=== PATIENT | female | born 1940 | race Caucasian/White ===

== ENCOUNTER 2018-09-30 10:15 | Outpatient (CLI) | payer MEDICARE ==
--- NOTE | 2018-09-30 10:34 | RAD ---
EXAM: Chest PA and lateral: HISTORY: Cough COMPARISON: 05/20/2015 FINDINGS: Enlarged cardiac silhouette. Normal pulmonary vessels. Patchy interstitial opacities in lung bases, l ikely representing chronic change. No masses or consolidation. No pleural effusion or pneumothorax. IMPRESSION: No acute cardiopulmonary process.
== END 2018-09-30 10:16 | disposition home or self-care (01) ==
LOC: MADRAD 10:15
PROVIDERS: ATTEND Obstetrics & Gynecology
DX: R05 Cough (principal)
CPT/HCPCS: 71046

== ENCOUNTER 2019-07-27 16:57 | Emergency (ER) | payer MEDICARE ==
[2019-07-27 17:37] LABS: #Basophils 0.1 thou/uL (0.0-0.2); #Eosinphils 0.1 thou/uL (0.0-0.7); #Lymphocytes 2.1 thou/uL (1.20-3.40); #Monocytes 0.5 thou/uL (0.11-0.59); #Neutrophils 4.6 thou/uL (1.40-6.50); %Basophils 1.3 % (0.0-1.0); %Eosinophils 1.3 % (0.0-10.0); %Monocytes 7.3 % (0.0-10.0); %Neutrophils 62.1 % (42.0-75.0); Hemoglobin 14.1 g/dL (12.0-16.0); Mean Corpuscular HGB CONC 30.5 g/dL (32.0-36.0); Mean Corpuscular Hemoglobin 27.6 pg (27.0-31.0); Mean Corpuscular Volume 90.5 fL (78.0-98.0); Mean Platelet Volume 5.9 fL (7.4-10.4); Platelet Count 266 thou/uL (130-400); RBC Distribution Width 11.3 % (11.5-14.5); White Blood Cell (WBC) Count 7.5 thou/uL (4.8-10.8)
--- NOTE | 2019-07-27 17:49 | RAD ---
XR Chest 1 View Portable History: Chest pain Comparison: Radiograph September 30, 2018 Findings: Lungs are mildly hypoinflated. Heart size is enlarged. No pneumothorax. Likely a sliding hi atal hernia. Impression: Similar examination of the chest. Cardiomegaly, hypoinflation, and likely a sliding hiata l hernia.
[2019-07-27 17:54] LABS: ALT (SGPT) 14 U/L (8-55); AST (SGOT) 30 U/L (5-34); Albumin 4.2 g/dL (3.4-4.8); Alkaline Phosphatase 63 U/L (40-110); Anion Gap 17 mmol/L (10-20); BUN (Urea Nitrogen) 13 mg/dL (9.8-20.1); Bilirubin, Total 0.3 mg/dL (0.2-1.2); CK (CPK) 53 U/L (29-168); Calc. Creatinine Clearance 0 mL/min (70-130); Calcium 9.5 mg/dL (7.8-10.44); Carbon Dioxide 21 mmol/L (23-31); Chloride 106 mmol/L (98-107); Estimated GFR-MDRD 71; Globulin 3.2 g/dL (2.4-3.5); Glucose 106 mg/dL (83-110); Potassium 4.7 mmol/L (3.5-5.1); Protein, Total 7.4 g/dL (6.0-8.3); Sodium 139 mmol/L (136-145)
[2019-07-27] MEDS ORDERED: Enoxaparin Sodium 80 MG/0.8 ML SYRINGE ONE (19:11)
--- NOTE | 2019-07-27 19:46 | CT ---
CT ANGIOGRAM OF THE CHEST: 07/27/19 HISTORY: Dyspnea. Elevated D-dimer. COMPARISON: None. TECHNIQUE: CT angiogram of the chest performed in the axial plane. Three dimensional reformatted images are sub mitted for interpretation. FINDINGS: Lower neck and axilla: No masses or lymphadenopathy. Mediastinum: No mass, lymphadenopathy or hematoma. Heart is enlarged. No significant pericardial fluid. The visualized aorta has an overall normal calib er. No periaortic fat stranding. The visualized solid organs do not demonstrate any acute abnormality. There is a calcified granuloma in the spleen. There is a subcentimeter hypodensity in the right hepatic lobe, measuring 0.6 cm. The visualized renal parenchyma is unremarkable. Moderate hiatal hernia is noted. Trachea and central bro nchi are patent. There are extensive linear densities throughout the lung parenchyma suggesting scar and atelectasis. There are no lytic or blastic lesions in the osseous structures. Pulmonary arteries: There are filling defects involving the left upper lobar arteries, left lower lob e segmental arteries, right upper lobe lobar arteries and segmental arteries, middle lobe lobar and s egmental arteries as well as lobar and segmental arteries supplying the right lower lobe. IMPRESSION: Bilateral pulmonary artery emboli. Results of the study discussed with Dr. Jovon Stauffer 07/27/19 at 6:51 p.m. Code CR POS: PPP
== END 2019-07-27 20:15 | disposition short-term general hospital (02) ==
LOC: MADERS 16:57
DX: I26.99 Other pulmonary embolism without acute cor pulmonale (principal); R79.89 Other specified abnormal findings of blood chemistry; I10 Essential (primary) hypertension; R09.02 Hypoxemia
CPT/HCPCS: 36415; 71045; 71275; 80053; 82550; 82553; 83880; 84484; 85025; 85379; 93005; 96372; J1650

== ENCOUNTER 2020-08-12 14:45 | Outpatient (CLI) | payer MEDICARE ==
--- NOTE | 2020-08-12 16:06 | CT ---
CT PULMONARY ANGIOGRAM WITH IV CONTRAST AND 3D POSTPROCESSING: Date: 08/12/2020 HISTORY: Bilateral PE diagnosed on 07/27/2019. Follow-up exam. COMPARISON: 07/27/2019. FINDINGS: There is good contrast opacification of the pulmonary arterial vasculature without filling defects to suggest pulmonary embolism. The previously noted pulmonary emboli have resolved in the interim. The thoracic aorta is well opacified without aneurysm or dissection. No pleural or pericardial effusions are seen. Chronic parenchymal changes are again noted. No pneumothoraces, lobar consolidation, or chelle g masses are identified. There are degenerative changes in the spine. Upper abdominal tomograms demon strate no evidence of calcified gallstones. A tiny 6.0 mm hypodensity in the right hepatic lobe is st able. A moderate sized hiatal hernia is again seen. IMPRESSION: No CT evidence of pulmonary embolism. POS: OFF
== END 2020-08-12 14:46 | disposition home or self-care (01) ==
LOC: MADCT 14:45
PROVIDERS: ATTEND Registered Nurse
DX: I26.99 Other pulmonary embolism without acute cor pulmonale (principal)
CPT/HCPCS: 71275; 82565

== ENCOUNTER 2022-03-02 16:20 | Emergency (ER) | payer MEDICARE ==
[~2022-03-02 16:20] MED LIST: Iopamidol 370 76% 125 ML VIAL FS ONE
[2022-03-02 17:04] LABS: #Basophils 0.1 thou/uL (0.0-0.2); #Eosinphils 0.1 thou/uL (0.0-0.7); #Lymphocytes 2.1 thou/uL (1.20-3.40); #Monocytes 0.6 thou/uL (0.11-0.59); #Neutrophils 4.2 thou/uL (1.40-6.50); %Basophils 1.2 % (0.0-1.0); %Eosinophils 1.7 % (0.0-10.0); %Lymphocytes 30.1 % (21.0-51.0); Hemoglobin 13.1 g/dL (12.0-16.0); Mean Corpuscular HGB CONC 31.1 g/dL (32.0-36.0); Mean Corpuscular Hemoglobin 27.7 pg (27.0-31.0); Mean Platelet Volume 6.4 fL (7.4-10.4); Platelet Count 291 thou/uL (130-400); RBC Distribution Width 11.5 % (11.5-14.5); Red Blood Cell (RBC) Count 4.72 mill/uL (4.20-5.40)
[2022-03-02 17:21] LABS: ALT (SGPT) 12 U/L (8-55); AST (SGOT) 30 U/L (5-34); Albumin 4.1 g/dL (3.4-4.8); Alkaline Phosphatase 62 U/L (40-110); Anion Gap 15 mmol/L (10-20); BUN (Urea Nitrogen) 13 mg/dL (9.8-20.1); Bilirubin, Total 0.4 mg/dL (0.2-1.2); Calc. Creatinine Clearance 0 mL/min (70-130); Calcium 9.8 mg/dL (7.8-10.44); Carbon Dioxide 22 mmol/L (23-31); Chloride 105 mmol/L (98-107); Estimated GFR 79; Glucose 104 mg/dL (83-110); Potassium 4.3 mmol/L (3.5-5.1); Protein, Total 7.1 g/dL (5.8-8.1); Sodium 138 mmol/L (136-145)
[2022-03-02 17:38] LABS: CKMB 3.3 ng/mL (0-6.6)
[2022-03-02 18:01] LABS: Bilirubin Negative (Negative); Blood, Urine Trace (Negative); Clarity Clear (Clear); Glucose, Urine (Dipstick) Negative (Negative); Ketone, Urine Negative (Negative); Leukocyte Negative (Negative); Nitrite Negative (Negative); Protein, Urine (Dipstick) Negative (Neg-Trace); Specific Gravity, Urine 1.025 (1.005-1.030); Urobilinogen 0.2 mg/dL (Less than 2)
[2022-03-02 18:14] LABS: RBC/HPF 0-3 HPF (0-3)
[2022-03-02 18:15] LABS: Bacteria/HPF Rare-Few HPF (None Seen); Mucous/LPF Few LPF (<2+); Squamous Epithelial 0-3 HPF (0-3)
[2022-03-02] MEDS ORDERED: Apixaban 5 MG TAB PO SCH (19:00)
[2022-03-02 19:46] LABS: SARS-CoV-2 NAA Rapid Test Not Detected (NotDetected)
[2022-03-02 20:39] LABS: CKMB 3.6 ng/mL (0-6.6)
== END 2022-03-02 20:22 | disposition short-term general hospital (02) ==
LOC: MADERS 16:20
DX: I26.99 Other pulmonary embolism without acute cor pulmonale (principal); J98.4 Other disorders of lung; R77.8 Other specified abnormalities of plasma proteins; R09.02 Hypoxemia; I10 Essential (primary) hypertension; Z20.822 Contact with and (suspected) exposure to COVID-19; Z85.3 Personal history of malignant neoplasm of breast; Z79.82 Long term (current) use of aspirin; Z79.899 Other long term (current) drug therapy
CPT/HCPCS: 36415; 71046; 71275; 80053; 81015; 82553; 83605; 83880; 84484; 85025; 85379; 87040; 87149; 93005; 94760; Q9967; U0002